=== PATIENT | female | born 1945 | race Caucasian/White ===

== ENCOUNTER → 2016-11-01 | Outpatient (CLI) | payer MEDICARE, OTHER ==
[~2016-11-01] MED LIST: ACET PO; ALPR1TAB6 PO; ASPI-496 PO; ATOR10TA PO; LEVO75TA5 PO; LISI1TAB3 PO; OXYCODONE PO; SERT50TA5 PO; SITA100T PO
[2016-11-01 11:24] LABS: ASPARTATE AMINO TRANSFERASE 16 U/L (15-37); BLOOD UREA NITROGEN 11 mg/dL (7-18)
== END | disposition home or self-care (01) ==
LOC: STAR 10:01
PROVIDERS: ATTEND Surgery
DX: Z01.818 Encounter for other preprocedural examination (principal); C50.911 Malignant neoplasm of unspecified site of right female breast
CPT/HCPCS: 36415; 80053; 93005

== ENCOUNTER 2016-11-09 09:10 | Day surgery (SDC) | payer MEDICARE, OTHER ==
[~2016-11-09] VITALS: Ht 157.5 cm; Wt 88.0 kg
[2016-11-09] MEDS ORDERED: LACTATED RINGERS 1,000 ML IV SCH (09:47)
[2016-11-09 10:16] VITALS: BP 135/72
[2016-11-09] MEDS ORDERED: ISOSULFAN BLUE 10 MG/ML, 5ML IV ONE (14:16)
[2016-11-09] MEDS ORDERED: EPINEPHRINE 1 MG/ML, 1ML ONE (14:17)
[2016-11-09] MEDS ORDERED: BUPIVACAINE/PF 0.5% ONE (14:17)
[2016-11-09] MEDS ORDERED: FENTANYL PF 250 MCG/5ML ONE (14:48)
[2016-11-09] MEDS ORDERED: MIDAZOLAM 1 MG/ML, 2ML ONE (14:49)
[2016-11-09] MEDS ORDERED: PROPOFOL 10 MG/ML, 20ML ONE (15:17)
[2016-11-09] MEDS ORDERED: ONDANSETRON 2MG/ML, 2ML ONE (15:17)
[2016-11-09] MEDS ORDERED: ROCURONIUM 10 MG/ML ONE (15:17)
[2016-11-09] MEDS ORDERED: SUCCINYLCHOLINE 20 MG/ML, 10ML ONE (15:17)
[2016-11-09] MEDS ORDERED: DEXAMETHASONE 4 MG/ML, 1ML ONE (15:17)
[2016-11-09] MEDS ORDERED: KETOROLAC 30 MG/1 ML ONE (15:17)
[2016-11-09] MEDS ORDERED: CEFAZOLIN 1,000 MG ONE (15:17)
[2016-11-09] MEDS ORDERED: ACETAMINOPHEN 325 MG TABLET PO PRN (16:00)
[2016-11-09] MEDS ORDERED: LABETALOL 5MG/ML, 20ML IV PRN (16:00)
[2016-11-09] MEDS ORDERED: METOCLOPRAMIDE 5 MG/ML, 2ML IV PRN (16:00)
[2016-11-09] MEDS ORDERED: MEPERIDINE/PF 25MG/0.5ML IVPush PRN (16:00)
[2016-11-09] MEDS ORDERED: PROMETHAZINE 25 MG/ML, 1ML IV PRN (16:00)
[2016-11-09] MEDS ORDERED: ONDANSETRON 2MG/ML, 2ML IVPush PRN (16:00)
[2016-11-09] MEDS ORDERED: MIDAZOLAM 1 MG/ML, 2ML IV PRN (16:00)
[2016-11-09] MEDS ORDERED: OXYcodone 5 MG/5 ML ORAL.SOL UDC PO PRN (16:00)
[2016-11-09] MEDS ORDERED: hydrALAzine 20 MG/ML, 1ML IV PRN (16:00)
[2016-11-09] MEDS ORDERED: FENTANYL PF 100 MCG/2ML ONE (17:08)
[2016-11-09] MEDS ORDERED: HYDROmorphone 1 MG/ML, 1ML ONE (17:08)
[2016-11-09] MEDS: FENTANYL PF 100 MCG/2ML IV PRN ×2 (17:25→17:30)
[2016-11-09] MEDS ORDERED: ACETAMINOPHEN 650 MG/20.3 ML UDC ONE (17:27)
[2016-11-09] MEDS ORDERED: OXYcodone 5 MG/5 ML ORAL.SOL UDC ONE (17:27)
[2016-11-09] MEDS: HYDROmorphone 1 MG/ML, 1ML IV PRN ×3 (17:35→17:45)
== END 2016-11-09 19:40 | disposition home or self-care (01) ==
LOC: OUT 09:10 → EDSTATUS 14:30 → OUT 19:40
PROVIDERS: ATTEND Surgery
DX: C50.911 Malignant neoplasm of unspecified site of right female breast (principal); I10 Essential (primary) hypertension; E11.9 Type 2 diabetes mellitus without complications; E78.5 Hyperlipidemia, unspecified; E03.9 Hypothyroidism, unspecified; Z87.891 Personal history of nicotine dependence; E66.9 Obesity, unspecified; Z68.35 Body mass index [BMI] 35.0-35.9, adult; Z83.3 Family history of diabetes mellitus; F12.90 Cannabis use, unspecified, uncomplicated; Z90.710 Acquired absence of both cervix and uterus; Z90.49 Acquired absence of other specified parts of digestive tract; E78.00 Pure hypercholesterolemia, unspecified; G47.30 Sleep apnea, unspecified; H35.30 Unspecified macular degeneration
CPT/HCPCS: 19301; 19366; 32553; 38525; 38792; 82962; 88305; 88307; 88333; A9541; C1760; J0171; J0330; J0690; J1100; J1170; J1885; J2250; J2405; J2704; J3010; J3490; J7120

== ENCOUNTER → 2016-12-20 | Outpatient (CLI) | payer MEDICARE, OTHER | END | disposition home or self-care (01) | LOC: PETCFH 10:18 | PROVIDERS: ATTEND Internal Medicine Hematology & Oncology | DX: C50.919 Malignant neoplasm of unspecified site of unspecified female breast (principal); D75.1 Secondary polycythemia | CPT/HCPCS: 78306; A9503 ==

== ENCOUNTER → 2016-12-20 | Outpatient (CLI) | payer MEDICARE, OTHER ==
[~2016-12-20] MED LIST changes: +OMNIPAQUE 350 MG/ML, 75ML BOTTLE ONE
== END | disposition home or self-care (01) ==
LOC: CFH 10:33
PROVIDERS: ATTEND Internal Medicine Hematology & Oncology
DX: J44.9 Chronic obstructive pulmonary disease, unspecified (principal); R91.8 Other nonspecific abnormal finding of lung field; K43.9 Ventral hernia without obstruction or gangrene; D75.1 Secondary polycythemia; C50.919 Malignant neoplasm of unspecified site of unspecified female breast
CPT/HCPCS: 71260; Q9967

== ENCOUNTER 2017-01-30 11:23 | Inpatient (IN) | payer MEDICARE, OTHER ==
[~2017-01-30] VITALS: Ht 157.5 cm; Wt 87.4 kg
[~2017-01-30 11:23] MED LIST changes: -OMNIPAQUE 350 MG/ML, 75ML BOTTLE ONE
[2017-01-30] MEDS ORDERED: SODIUM CHLORIDE FLUSH 10ML SYR IVF ONE (12:00)
[2017-01-30] MEDS ORDERED: SODIUM CHLORIDE 0.9% 1,000ML IVBOLUS ONE ×2 (12:00→15:00)
[2017-01-30 12:12] LABS: HEMATOCRIT 48.4 % (34.6-47.8); HEMOGLOBIN 16.5 g/dL (11.7-16.4); WHITE BLOOD COUNT 7.8 x10^3/uL (3.4-10)
[2017-01-30 12:21] LABS: BLOOD UREA NITROGEN 15 mg/dL (7-18)
[2017-01-30 12:32] LABS: IS PT STATUS REG ER OR PRE ER? YES
[2017-01-30] MEDS ORDERED: GABA300C10 PO (13:10)
[2017-01-30] MEDS ORDERED: AMOX1TAB61 PO (13:13)
[2017-01-30] MEDS ORDERED: GADOBUTROL 7.5 MMOL/7.5 ML PFS ONE (13:24)
[2017-01-30] MEDS ORDERED: CEFTRIAXONE PMX 1GM/50ML 50 ML IV ONE (16:00)
[2017-01-30] MEDS ORDERED: CEFTRIAXONE PMX 1GM/50ML 50 ML ONE (16:05)
[2017-01-30] MEDS ORDERED: ZOLPIDEM 5MG TABLET PO PRN (16:30)
[2017-01-30] MEDS ORDERED: morphine SULFATE 10 MG/ML, 1ML IVPush PRN (16:30)
[2017-01-30] MEDS ORDERED: ALPRazolam 1MG TABLET PO PRN (16:30)
[2017-01-30] MEDS ORDERED: hydrALAzine 20 MG/ML, 1ML IVPush PRN (16:30)
[2017-01-30] MEDS ORDERED: BISACODYL 10 MG SUPP PR PRN (16:30)
[2017-01-30] MEDS ORDERED: HYDROcodone/APAP 5/325 TABLET PO PRN (16:30)
[2017-01-30] MEDS ORDERED: DOCUSATE 100 MG CAPSULE PO PRN (16:30)
[2017-01-30] MEDS ORDERED: ONDANSETRON 2MG/ML, 2ML IVPush PRN (16:30)
[2017-01-30] MEDS ORDERED: ACETAMINOPHEN 325 MG TABLET PO PRN (16:30)
[2017-01-30] MEDS ORDERED: ENOXAPARIN 40 MG/0.4 ML SQ SCH (16:30)
[2017-01-30] MEDS ORDERED: ENOXAPARIN 40 MG/0.4 ML ONE (17:30)
[2017-01-30 18:47] VITALS: BP 125/81
[2017-01-30] MEDS: INSULIN ASPART 100 UNITS/ML, PEN SQ-INSULIN SCH (19:47)
[2017-01-30 20:36] VITALS: BP_SYST 107; BP_SYST 117; BP_DIAS 71; BP_DIAS 73; BP_DIAS 82
[2017-01-30] MEDS ORDERED: GABAPENTIN 300 MG CAPSULE PO SCH (21:00)
[2017-01-30] MEDS: SODIUM CHLORIDE 0.9% 1,000 ML IV SCH (21:00)
[2017-01-30] MEDS: ATORVASTATIN 10 MG TABLET PO SCH (21:00)
[2017-01-30 21:49] VITALS: BP 125/81
[2017-01-31] MEDS: SODIUM CHLORIDE 0.9% 1,000 ML IV SCH ×2 (00:20→07:43)
[2017-01-31 01:45] VITALS: BP 134/83
[2017-01-31 04:55] LABS: HEMOGLOBIN 14.7 g/dL (11.7-16.4); WHITE BLOOD COUNT 4.9 x10^3/uL (3.4-10)
[2017-01-31 05:03] LABS: BLOOD UREA NITROGEN 14 mg/dL (7-18)
[2017-01-31 06:43] VITALS: BP 151/89
[2017-01-31] MEDS: INSULIN ASPART 100 UNITS/ML, PEN SQ-INSULIN SCH ×2 (07:00→11:51)
[2017-01-31] MEDS: ATORVASTATIN 10 MG TABLET PO SCH (07:41)
[2017-01-31] MEDS ORDERED: LEVOTHYROXINE 75 MCG TABLET PO SCH (09:00)
[2017-01-31] MEDS ORDERED: SERTRALINE 50MG TABLET PO SCH (09:00)
[2017-01-31] MEDS ORDERED: ASPIRIN 81 MG TABLET EC PO SCH (09:00)
[2017-01-31] MEDS ORDERED: SITAGLIPTIN 50MG TABLET PO SCH (09:00)
[2017-01-31 11:53] VITALS: BP 144/84
[2017-01-31 12:39] VITALS: BP 129/82
[2017-01-31] MEDS ORDERED: GABAPENTIN 100 MG CAPSULE PO SCH (16:00)
== END 2017-01-31 15:20 | disposition home or self-care (01) | DRG 314 ==
LOC: ED 13:59 → EDIP 15:58 → 3NW 18:40 → DCLOUNGE 01-31 15:08
PROVIDERS: ADMIT Internal Medicine; ATTEND Internal Medicine
DX: I95.9 Hypotension, unspecified (principal); E43 Unspecified severe protein-calorie malnutrition; E10.65 Type 1 diabetes mellitus with hyperglycemia; C50.911 Malignant neoplasm of unspecified site of right female breast; J98.11 Atelectasis; N30.90 Cystitis, unspecified without hematuria; I10 Essential (primary) hypertension; E03.9 Hypothyroidism, unspecified; R47.81 Slurred speech; E78.5 Hyperlipidemia, unspecified; F41.1 Generalized anxiety disorder; G47.33 Obstructive sleep apnea (adult) (pediatric); H35.30 Unspecified macular degeneration; Z80.0 Family history of malignant neoplasm of digestive organs; Z83.3 Family history of diabetes mellitus; Z85.3 Personal history of malignant neoplasm of breast; Z87.891 Personal history of nicotine dependence; Z92.3 Personal history of irradiation; Z90.49 Acquired absence of other specified parts of digestive tract; T46.4X5A Adverse effect of angiotensin-converting-enzyme inhibitors, initial encounter; T50.2X5A Adverse effect of carbonic-anhydrase inhibitors, benzothiadiazides and other diuretics, initial encounter
CPT/HCPCS: 36415; 70450; 70553; 71010; 77412; 80048; 81001; 82040; 82962; 83605; 83735; 84443; 84484; 85025; 87086; 93005; 96361; 96372; 96374; A9585; J0696; J1650; J1815; J7030

== ENCOUNTER → 2017-03-01 | Outpatient (CLI) | payer MEDICARE, OTHER ==
[~2017-03-01] MED LIST changes: +AMOX1TAB61 PO; +GABA300C10 PO
== END | disposition home or self-care (01) ==
LOC: ROC 09:57
PROVIDERS: ATTEND Radiology Radiation Oncology
DX: Z08 Encounter for follow-up examination after completed treatment for malignant neoplasm (principal); C50.911 Malignant neoplasm of unspecified site of right female breast; D75.1 Secondary polycythemia; Z79.82 Long term (current) use of aspirin
CPT/HCPCS: 99212; G0463

== ENCOUNTER → 2017-10-01 | Outpatient (CLI) | payer MEDICARE, OTHER | LOC: ROC 07:46 | PROVIDERS: ATTEND Radiology Radiation Oncology | DX: Z08 Encounter for follow-up examination after completed treatment for malignant neoplasm (principal); C50.511 Malignant neoplasm of lower-outer quadrant of right female breast; D75.1 Secondary polycythemia; J44.9 Chronic obstructive pulmonary disease, unspecified; Z17.0 Estrogen receptor positive status [ER+]; Z79.82 Long term (current) use of aspirin; Z79.811 Long term (current) use of aromatase inhibitors | CPT/HCPCS: G0463 ==

== ENCOUNTER → 2017-12-18 | Outpatient (CLI) | payer MEDICARE, OTHER | END | disposition home or self-care (01) | LOC: CFH 10:28 | PROVIDERS: ATTEND Internal Medicine Hematology & Oncology | DX: M81.0 Age-related osteoporosis without current pathological fracture (principal) | CPT/HCPCS: 77080 ==

== ENCOUNTER → 2018-09-05 | Outpatient (CLI) | payer MEDICARE, OTHER ==
[~2018-09-05] MED LIST changes: +SERT50TA28 PO; -SERT50TA5 PO
== END | disposition home or self-care (01) ==
LOC: ROC 07:18
PROVIDERS: ATTEND Radiology Radiation Oncology
DX: C50.511 Malignant neoplasm of lower-outer quadrant of right female breast (principal)
CPT/HCPCS: G0463

== ENCOUNTER 2019-08-28 11:02 | Outpatient (CLI) | payer MEDICARE, OTHER ==
[~2019-08-28 11:02] MED LIST changes: +ANAS1TAB PO; +ASPI81TA45 PO; +ATOR-2 PO; +CLOP75TA PO; +FLUT1BLS3 IH; +HYDR25CA PO; +INSU100I13 SQ-INSULIN; +LISI-167 PO; +LISI-170 PO; +LISI1TAB23 PO; -LISI1TAB3 PO; +METF500T17 PO; +OXYC-302 PO; +OXYC-307 PO; +PALB100C PO; +TRIA10.8 NAS
[2019-08-28 12:51] LABS: ALBUMIN 2.2 g/dL (3.4-5.0); ANION GAP 5 mmol/L (5-15); CALCIUM 9.2 mg/dL (8.5-10.1); CHLORIDE 102 mmol/L (98-107)
[2019-08-28 12:56] LABS: ALANINE AMINOTRANSFERASE 15 U/L (12-78); ALKALINE PHOSPHATASE 114 U/L (45-117); BILIRUBIN,TOTAL 0.2 mg/dL (0.2-1.0); CREATININE 0.68 mg/dL (0.55-1.02)
[2019-08-28 13:00] LABS: BASOPHILS # (AUTO) 0.02 x10^3/uL (0-0.1); BASOPHILS % (AUTO) 1 % (0-1); EOSINOPHILS # (AUTO) 0.08 x10^3/uL (0-0.4); EOSINOPHILS % (AUTO) 2 % (1-7); LYMPHOCYTES % (AUTO) 17 % (22-44); MD NO; MEAN CORPUSCULAR HEMOGLOBIN 31.6 pg (27.0-34.8); MEAN CORPUSCULAR HGB CONC 33.3 g/dL (32.4-35.8); MEAN CORPUSCULAR VOLUME 94.9 fL (80-100); MEAN PLATELET VOLUME 6.5 fL (7.4-10.4); MONOCYTES # (AUTO) 0.45 x10^3/uL (0.2-0.8); MONOCYTES % (AUTO) 10 % (2-9); NEUTROPHILS # (AUTO) 3.29 x10^3/uL (1.8-6.8); NEUTROPHILS % (AUTO) 71 % (42-75); PLATELET COUNT 243 x10^3/uL (130-400); RED BLOOD COUNT 4.04 x10^6/uL (3.82-5.3)
== END 2019-08-28 23:59 | disposition home or self-care (01) ==
LOC: CFH 11:02
PROVIDERS: ATTEND Internal Medicine
DX: Z51.11 Encounter for antineoplastic chemotherapy (principal); C50.511 Malignant neoplasm of lower-outer quadrant of right female breast; C79.51 Secondary malignant neoplasm of bone; C78.00 Secondary malignant neoplasm of unspecified lung; E55.9 Vitamin D deficiency, unspecified; D75.1 Secondary polycythemia; R53.0 Neoplastic (malignant) related fatigue; M81.0 Age-related osteoporosis without current pathological fracture; Z79.811 Long term (current) use of aromatase inhibitors; Z79.899 Other long term (current) drug therapy
CPT/HCPCS: 36415; 80053; 85025

== ENCOUNTER 2019-09-11 06:12 | Inpatient (IN) | payer MEDICARE, OTHER ==
[~2019-09-11] VITALS: Ht 157.5 cm; Wt 87.0 kg
[2019-09-11] MEDS ORDERED: ALBUTEROL/IPRATROPIUM 2.5MG/0.5MG, 3 ML ONE ×2 (06:23→07:54)
[2019-09-11] MEDS ORDERED: OXYcodone/APAP 5/325MG TABLET ONE (06:23)
[2019-09-11] MEDS ORDERED: OXYcodone 5 MG/5 ML ORAL.SOL UDC PO ONE (06:30)
[2019-09-11] MEDS ORDERED: SODIUM CHLORIDE FLUSH 10ML SYR IVF ONE (06:30)
[2019-09-11] MEDS ORDERED: SODIUM CHLORIDE 0.9%, 500ML IVBOLUS ONE (06:30)
[2019-09-11] MEDS ORDERED: ALBUTEROL/IPRATROPIUM 2.5MG/0.5MG, 3 ML NEB ONE (06:30)
--- NOTE | 2019-09-11 06:30 | NUR ---
EKG DONE ON ARRIVAL.
--- NOTE | 2019-09-11 06:34 | NUR ---
TASK RN: RN PULLED DUONEB AND 2 5MG OXYCODONE FROM [facility] FOR PRIMARY RN.
--- NOTE | 2019-09-11 06:41 | NUR ---
PT BIBA FROM HOME FOR SOB. PT WEARS HOME O2 AT 3L CONTINUOUS. PT INCREASED TO 5L S RELIEF (88% SPO2). PT STATES FEVER X YESTERDAY. DENIES ANY TRAVEL. PT WAS GIVEN DUONEB AT HOME S RELIEF. PT STATES THIS SOB IS SIMILIAR TO A MONTH AGO WHEN SHE WAS ADMITTED FOR B/O PLEURAL EFFUSIONS, PT WAS ADMITTED FOR ~12 DAYS. PT ARRIVED ON NRB, SPO2 95%. PT TALKING IN FULL SENTANCES, STATES UNABLE TO TAKE DEEP BREATH. DIMINISHED BS THROUGHOUT. EKD OBTAINED. PT ST ONMONITOR 120-130S. PT HAVING OCCASIONAL SVT, HIGHEST NOTED 210, PT DENIES FEELING ANY FLUTTERING IN CHEST. NO HX OF IRR HR. PIV ESTB. LABS DRAWN C B/C X1. PT GIVEN DUONUB, STATES MILD IMPROVEMENT C TAKING DEEP BREATH. REMAINS 97% ON 15L, DECREASED TO 10L, PT TOLERATING WELL.
[2019-09-11 06:57] LABS: MEAN CORPUSCULAR HEMOGLOBIN 31.9 pg (27.0-34.8); MEAN CORPUSCULAR HGB CONC 33.1 g/dL (32.4-35.8); MEAN CORPUSCULAR VOLUME 96.6 fL (80-100); MEAN PLATELET VOLUME 6.7 fL (7.4-10.4); PLATELET COUNT 285 x10^3/uL (130-400); RED BLOOD COUNT 3.81 x10^6/uL (3.82-5.3); RED CELL DISTRIBUTION WIDTH 17.4 % (9.6-15.2)
[2019-09-11] MEDS ORDERED: OXYcodone/APAP 5/325MG TABLET PO ONE (07:00)
[2019-09-11] MEDS ORDERED: METOPROLOL 1 MG/ML, 5ML IVPush ONE (07:00)
--- NOTE | 2019-09-11 07:00 | NUR ---
REPORT FROM TATIANA RODGERS, ASSUME CARE OF PT AT THIS TIME. PT RESTING COMFORTABLY, STATES LESS SOB AT THIS TIME. VSS, NRB IN PLACE AT 15 LITERS W/96% SAT. CALL LIGHT WITHIN REACH. PT REMAINS IN ISOLATION R/O COVID-19
[2019-09-11 07:04] LABS: CHLORIDE 104 mmol/L (98-107)
--- NOTE | 2019-09-11 07:05 | NUR ---
ELIESER [phone]
[2019-09-11 07:14] LABS: ALANINE AMINOTRANSFERASE 11 U/L (12-78); ALBUMIN 2.2 g/dL (3.4-5.0); ALKALINE PHOSPHATASE 112 U/L (45-117); ANION GAP 8 mmol/L (5-15); BILIRUBIN,TOTAL 0.6 mg/dL (0.2-1.0); CREATININE 0.73 mg/dL (0.55-1.02); TOTAL PROTEIN 6.1 g/dL (6.4-8.2); TROPONIN I 0.019 ng/mL (0.000-0.045)
[2019-09-11] MEDS ORDERED: CEFTRIAXONE PMX 1GM/50ML 50 ML IV ONE (07:30)
[2019-09-11] MEDS ORDERED: MAGNESIUM SULFATE PMX 2GM/50ML 50 ML IV ONE ×2 (07:30→11:30)
[2019-09-11] MEDS ORDERED: AZITHROMYCIN 500 MG in SODIUM CHLORIDE 0.9% 250 ML IV ONE (07:30)
[2019-09-11 07:38] LABS: MD YES
[2019-09-11 07:41] LABS: BAND#(MANUAL) 0.25 x10^3/uL; BANDS%(MANUAL) 5 % (0-7); LYMPHS% (MANUAL) 7 % (22-44); SEG#(MANUAL) 4.25 x10^3/uL (1.8-6.8); SEGS% (MANUAL) 85 % (42-75)
[2019-09-11 07:42] LABS: LYMPH#(MANUAL) 0.35 x10^3/uL (1-3.4); MONOS#(MANUAL) 0.15 x10^3/uL (0.3-2.7); MONOS% (MANUAL) 3 % (2-9)
[2019-09-11] MEDS ORDERED: MAGNESIUM SULFATE PMX 2GM/50ML 50 ML ONE (07:42)
[2019-09-11 07:43] LABS: <PLATELET ESTIMATE> ADEQUATE; <PLT MORPHOLOGY> NORMAL PLT MORPH; ANISOCYTOSIS 1+
[2019-09-11] MEDS ORDERED: CEFTRIAXONE PMX 1GM/50ML 50 ML ONE (07:43)
--- NOTE | 2019-09-11 07:55 | NUR ---
OXYGEN TITRATED TO 6 LITERS VIA NC. PT STATES HOME OXYGEN OF 2-3 VIA NC NORMALLY. PT TO CT.
--- NOTE | 2019-09-11 08:25 | NUR ---
ANTIBIOTICS INFUSING. IV SITES RETAPED. PT ASSISTED IN REPOSITIONING. PULSE OX RANGING 92-95% ON 6LITERS VIA NC. NAD. VS UPDATED IN COMPUTER.
[2019-09-11] MEDS ORDERED: OMNIPAQUE 350 MG/ML, 75ML BOTTLE ONE (08:39)
--- NOTE | 2019-09-11 08:54 | NUR ---
CTA RESULTS BACK, PT FOR RECHECK.
--- NOTE | 2019-09-11 10:47 | NUR ---
SPOKE WITH ABOUT CONCERNS. ALL QUESTIONS ANSWERED. CONTINUE TO AWAIT ADMIT BED.
--- NOTE | 2019-09-11 10:54 | NUR ---
HOSPITALIST IS AT THE BEDSIDE FOR CONSULT
[2019-09-11] MEDS: ENOXAPARIN 40 MG/0.4 ML SQ SCH (12:26)
[2019-09-11 12:46] VITALS: BP 108/49
[2019-09-11] MEDS: DOXYCYCLINE 100 MG in DEXTROSE 5% 250 ML IV SCH (12:58)
[2019-09-11 13:31] VITALS: BP 108/49
[2019-09-11] MEDS: INSULIN LISPRO 100 UNITS/ML, PEN SQ-INSULIN SCH ×2 (16:26→19:39)
[2019-09-11] MEDS: OXYcodone IR 5MG TABLET PO PRN (17:16)
[2019-09-11] MEDS ORDERED: SODIUM CHLORIDE NASAL SPRAY 45ML BOTTLE NAS PRN (18:00)
[2019-09-11 19:38] VITALS: BP 147/85
[2019-09-11] MEDS: HYDROXYCHLOROQUINE 200 MG TABLET PO SCH (20:01)
[2019-09-11] MEDS: ALPRazolam 1MG TAB PO PRN (20:02)
[2019-09-12 00:06] VITALS: BP 148/77
[2019-09-12] MEDS: DOXYCYCLINE 100 MG in DEXTROSE 5% 250 ML IV SCH ×2 (01:20→12:43)
[2019-09-12] MEDS: OXYcodone IR 5MG TABLET PO PRN ×4 (01:20→22:25)
[2019-09-12] MEDS ORDERED: DILTIAZEM 5 MG/ML, 5ML IVPush ONE ×2 (05:30→06:30)
[2019-09-12 05:48] VITALS: BP 146/86
[2019-09-12] MEDS: ASPIRIN 81 MG TABLET EC PO SCH (05:51)
[2019-09-12] MEDS: ALPRazolam 1MG TAB PO PRN ×2 (05:51→20:09)
[2019-09-12] MEDS: LEVOTHYROXINE 75 MCG TABLET PO SCH (05:52)
[2019-09-12 06:25] VITALS: BP 151/94
[2019-09-12 07:05] VITALS: BP 127/89
[2019-09-12] MEDS: INSULIN LISPRO 100 UNITS/ML, PEN SQ-INSULIN SCH ×4 (07:47→19:40)
[2019-09-12] MEDS ORDERED: METOPROLOL TARTRATE 25 MG TAB PO SCH (08:00)
[2019-09-12] MEDS: CEFTRIAXONE PMX 1GM/50ML 50 ML IV SCH (09:09)
[2019-09-12] MEDS: ALBUTEROL-IPRATROPIUM MDI INH INH SCH ×2 (09:10→20:10)
[2019-09-12] MEDS: FLUTICASONE/VILANTEROL 100-25MCG/INH INH SCH (09:10)
[2019-09-12] MEDS: HYDROXYCHLOROQUINE 200 MG TABLET PO SCH ×2 (09:15→20:09)
[2019-09-12] MEDS: ZINC SULFATE 220 MG CAPSULE PO SCH (09:15)
[2019-09-12] MEDS: LISINOPRIL 10 MG TABLET PO SCH (09:15)
[2019-09-12] MEDS: CHOLECALCIFEROL 5,000u TAB PO SCH (09:15)
[2019-09-12] MEDS: ASCORBIC ACID 500 MG TABLET PO SCH (09:15)
[2019-09-12] MEDS: METOPROLOL TARTRATE 25 MG TAB PO SCH ×2 (09:15→16:57)
[2019-09-12] MEDS: ENOXAPARIN 40 MG/0.4 ML SQ SCH (11:52)
[2019-09-12 12:50] VITALS: BP 125/98
[2019-09-12 19:41] VITALS: BP 130/62
[2019-09-12] MEDS: ACETAMINOPHEN 325 MG TABLET PO PRN (20:08)
[2019-09-13 01:04] VITALS: BP 143/53
[2019-09-13] MEDS: DOXYCYCLINE 100 MG in DEXTROSE 5% 250 ML IV SCH ×2 (01:06→12:16)
[2019-09-13] MEDS: ASPIRIN 81 MG TABLET EC PO SCH (05:11)
[2019-09-13] MEDS: LEVOTHYROXINE 75 MCG TABLET PO SCH (05:11)
[2019-09-13] MEDS: OXYcodone IR 5MG TABLET PO PRN ×3 (05:12→16:45)
[2019-09-13] MEDS: METOPROLOL TARTRATE 25 MG TAB PO SCH ×2 (05:12→16:45)
[2019-09-13 06:14] LABS: MEAN CORPUSCULAR HEMOGLOBIN 31.9 pg (27.0-34.8); MEAN CORPUSCULAR HGB CONC 32.7 g/dL (32.4-35.8); MEAN CORPUSCULAR VOLUME 97.5 fL (80-100); MEAN PLATELET VOLUME 6.7 fL (7.4-10.4); PLATELET COUNT 313 x10^3/uL (130-400); RED BLOOD COUNT 3.76 x10^6/uL (3.82-5.3); RED CELL DISTRIBUTION WIDTH 17.6 % (9.6-15.2)
[2019-09-13 06:21] LABS: CALCIUM 10.1 mg/dL (8.5-10.1); CHLORIDE 106 mmol/L (98-107)
[2019-09-13 06:25] LABS: ANION GAP 6 mmol/L (5-15)
[2019-09-13 06:26] LABS: ALANINE AMINOTRANSFERASE 11 U/L (12-78); ALKALINE PHOSPHATASE 125 U/L (45-117); BILIRUBIN,TOTAL 0.3 mg/dL (0.2-1.0); TOTAL PROTEIN 6.1 g/dL (6.4-8.2)
[2019-09-13 06:46] LABS: BASOPHILS # (AUTO) 0.02 x10^3/uL (0-0.1); BASOPHILS % (AUTO) 1 % (0-1); EOSINOPHILS # (AUTO) 0.15 x10^3/uL (0-0.4); EOSINOPHILS % (AUTO) 4 % (1-7); LYMPHOCYTES # (AUTO) 1.11 x10^3/uL (1-3.4); LYMPHOCYTES % (AUTO) 28 % (22-44); MD SCAN; MONOCYTES # (AUTO) 0.32 x10^3/uL (0.2-0.8); MONOCYTES % (AUTO) 8 % (2-9); NEUTROPHILS # (AUTO) 2.36 x10^3/uL (1.8-6.8); NEUTROPHILS % (AUTO) 60 % (42-75)
[2019-09-13] MEDS: INSULIN LISPRO 100 UNITS/ML, PEN SQ-INSULIN SCH ×4 (07:18→20:02)
[2019-09-13 08:17] VITALS: BP 124/56
[2019-09-13] MEDS: CEFTRIAXONE PMX 1GM/50ML 50 ML IV SCH (08:22)
[2019-09-13] MEDS: CHOLECALCIFEROL 5,000u TAB PO SCH (08:24)
[2019-09-13] MEDS: LISINOPRIL 10 MG TABLET PO SCH (08:24)
[2019-09-13] MEDS: HYDROXYCHLOROQUINE 200 MG TABLET PO SCH (08:24)
[2019-09-13] MEDS: ZINC SULFATE 220 MG CAPSULE PO SCH (08:24)
[2019-09-13] MEDS: ASCORBIC ACID 500 MG TABLET PO SCH (08:24)
[2019-09-13] MEDS: ALBUTEROL-IPRATROPIUM MDI INH INH SCH ×2 (08:26→20:01)
[2019-09-13] MEDS: FLUTICASONE/VILANTEROL 100-25MCG/INH INH SCH (08:26)
[2019-09-13] MEDS ORDERED: LIDOCAINE 1%, 10ML ONE (11:15)
[2019-09-13 13:53] VITALS: BP 121/58
[2019-09-13] MEDS: ENOXAPARIN 40 MG/0.4 ML SQ SCH (14:19)
[2019-09-13 18:06] VITALS: BP 139/67
[2019-09-13] MEDS: ALPRazolam 1MG TAB PO PRN (20:01)
[2019-09-13] MEDS: ACETAMINOPHEN 325 MG TABLET PO PRN (20:01)
[2019-09-14] VITALS: BP 107/56
[2019-09-14] MEDS: OXYcodone IR 5MG TABLET PO PRN ×5 (00:02→19:24)
[2019-09-14] MEDS: DOXYCYCLINE 100 MG in DEXTROSE 5% 250 ML IV SCH ×2 (00:02→12:20)
[2019-09-14] MEDS: ASPIRIN 81 MG TABLET EC PO SCH (05:12)
[2019-09-14] MEDS: ACETAMINOPHEN 325 MG TABLET PO PRN ×3 (05:12→19:24)
[2019-09-14] MEDS: LEVOTHYROXINE 75 MCG TABLET PO SCH (05:13)
[2019-09-14] MEDS: METOPROLOL TARTRATE 25 MG TAB PO SCH ×2 (05:13→17:34)
[2019-09-14 05:51] LABS: BASOPHILS # (AUTO) 0.01 x10^3/uL (0-0.1); BASOPHILS % (AUTO) 0 % (0-1); EOSINOPHILS # (AUTO) 0.08 x10^3/uL (0-0.4); EOSINOPHILS % (AUTO) 3 % (1-7); LYMPHOCYTES # (AUTO) 0.74 x10^3/uL (1-3.4); LYMPHOCYTES % (AUTO) 25 % (22-44); MD NO; MEAN CORPUSCULAR HEMOGLOBIN 32.6 pg (27.0-34.8); MEAN CORPUSCULAR HGB CONC 33.5 g/dL (32.4-35.8); MEAN CORPUSCULAR VOLUME 97.1 fL (80-100); MEAN PLATELET VOLUME 6.6 fL (7.4-10.4); MONOCYTES # (AUTO) 0.29 x10^3/uL (0.2-0.8); MONOCYTES % (AUTO) 10 % (2-9); NEUTROPHILS # (AUTO) 1.85 x10^3/uL (1.8-6.8); NEUTROPHILS % (AUTO) 62 % (42-75); PLATELET COUNT 258 x10^3/uL (130-400); RED BLOOD COUNT 3.59 x10^6/uL (3.82-5.3)
[2019-09-14 06:05] LABS: CHLORIDE 106 mmol/L (98-107)
[2019-09-14 06:12] LABS: ANION GAP 4 mmol/L (5-15); CALCIUM 9.4 mg/dL (8.5-10.1); CREATININE 0.57 mg/dL (0.55-1.02)
[2019-09-14] MEDS: INSULIN LISPRO 100 UNITS/ML, PEN SQ-INSULIN SCH ×4 (07:00→18:58)
[2019-09-14 08:25] VITALS: BP 160/66
[2019-09-14] MEDS: CEFTRIAXONE PMX 1GM/50ML 50 ML IV SCH (08:30)
[2019-09-14] MEDS: LISINOPRIL 10 MG TABLET PO SCH (08:30)
[2019-09-14] MEDS: ASCORBIC ACID 500 MG TABLET PO SCH (08:31)
[2019-09-14] MEDS: CHOLECALCIFEROL 5,000u TAB PO SCH (08:31)
[2019-09-14] MEDS: ZINC SULFATE 220 MG CAPSULE PO SCH (08:31)
[2019-09-14] MEDS: FLUTICASONE/VILANTEROL 100-25MCG/INH INH SCH (08:39)
[2019-09-14] MEDS: ALBUTEROL-IPRATROPIUM MDI INH INH SCH ×2 (08:40→19:25)
[2019-09-14] MEDS: ENOXAPARIN 40 MG/0.4 ML SQ SCH (12:20)
[2019-09-14 12:26] VITALS: BP 124/83
[2019-09-14] MEDS: POLYETHYLENE GLYCOL 17 GM PACKET PO PRN (13:54)
[2019-09-14] MEDS: ALPRazolam 1MG TAB PO PRN ×2 (14:01→20:26)
[2019-09-14 19:21] VITALS: BP 129/50
[2019-09-14] MEDS: DOCUSATE 100 MG CAPSULE PO PRN (19:24)
[2019-09-15 00:35] VITALS: BP 147/72
[2019-09-15] MEDS: OXYcodone IR 5MG TABLET PO PRN ×4 (00:38→15:08)
[2019-09-15] MEDS: DOXYCYCLINE 100 MG in DEXTROSE 5% 250 ML IV SCH ×2 (00:38→12:29)
[2019-09-15] MEDS: ASPIRIN 81 MG TABLET EC PO SCH (05:01)
[2019-09-15] MEDS: ACETAMINOPHEN 325 MG TABLET PO PRN ×2 (05:01→12:29)
[2019-09-15] MEDS: METOPROLOL TARTRATE 25 MG TAB PO SCH (05:02)
[2019-09-15] MEDS: LEVOTHYROXINE 75 MCG TABLET PO SCH (05:02)
[2019-09-15 05:49] LABS: BASOPHILS # (AUTO) 0.03 x10^3/uL (0-0.1); BASOPHILS % (AUTO) 1 % (0-1); EOSINOPHILS # (AUTO) 0.05 x10^3/uL (0-0.4); EOSINOPHILS % (AUTO) 2 % (1-7); LYMPHOCYTES # (AUTO) 0.62 x10^3/uL (1-3.4); LYMPHOCYTES % (AUTO) 19 % (22-44); MD NO; MEAN CORPUSCULAR HEMOGLOBIN 31.9 pg (27.0-34.8); MEAN CORPUSCULAR HGB CONC 33.1 g/dL (32.4-35.8); MEAN CORPUSCULAR VOLUME 96.4 fL (80-100); MEAN PLATELET VOLUME 6.7 fL (7.4-10.4); MONOCYTES # (AUTO) 0.36 x10^3/uL (0.2-0.8); MONOCYTES % (AUTO) 11 % (2-9); NEUTROPHILS # (AUTO) 2.13 x10^3/uL (1.8-6.8); NEUTROPHILS % (AUTO) 67 % (42-75); PLATELET COUNT 236 x10^3/uL (130-400); RED BLOOD COUNT 3.49 x10^6/uL (3.82-5.3); RED CELL DISTRIBUTION WIDTH 17.1 % (9.6-15.2)
[2019-09-15] MEDS: INSULIN LISPRO 100 UNITS/ML, PEN SQ-INSULIN SCH ×3 (07:00→16:00)
[2019-09-15 07:05] VITALS: BP 150/82
[2019-09-15] MEDS: LISINOPRIL 10 MG TABLET PO SCH (08:05)
[2019-09-15] MEDS: ASCORBIC ACID 500 MG TABLET PO SCH (08:05)
[2019-09-15] MEDS: ZINC SULFATE 220 MG CAPSULE PO SCH (08:05)
[2019-09-15] MEDS: CHOLECALCIFEROL 5,000u TAB PO SCH (08:06)
[2019-09-15] MEDS: ALBUTEROL-IPRATROPIUM MDI INH INH SCH (08:06)
[2019-09-15] MEDS: CEFTRIAXONE PMX 1GM/50ML 50 ML IV SCH (08:07)
[2019-09-15] MEDS: FLUTICASONE/VILANTEROL 100-25MCG/INH INH SCH (08:07)
[2019-09-15] MEDS: DOCUSATE 100 MG CAPSULE PO PRN (09:30)
[2019-09-15] MEDS: ALPRazolam 1MG TAB PO PRN (09:31)
[2019-09-15] MEDS: POLYETHYLENE GLYCOL 17 GM PACKET PO PRN (09:34)
[2019-09-15] MEDS: ENOXAPARIN 40 MG/0.4 ML SQ SCH (12:29)
[2019-09-15 14:54] VITALS: BP 148/65
[2019-09-15] MEDS ORDERED: DOXY100C2 PO (15:11)
[2019-09-15] MEDS ORDERED: METO25TA35 PO (15:11)
[2019-09-15] MEDS ORDERED: RIVA20TA PO (15:11)
[2019-09-15] MEDS ORDERED: CEFD300C37 PO (15:11)
== END 2019-09-15 16:40 | disposition home or self-care (01) | DRG 193 ==
LOC: ED 06:26 → EDIP 09:58 → 3WST 11:58 → 4NW 17:25
PROVIDERS: ADMIT Internal Medicine; ATTEND Internal Medicine
PROC: 0W9B30Z Drainage of Left Pleural Cavity with Drainage Device, Percutaneous Approach (ICD-10-PCS; principal; 2019-09-13)
DX: J18.9 Pneumonia, unspecified organism (principal); J96.21 Acute and chronic respiratory failure with hypoxia; C79.9 Secondary malignant neoplasm of unspecified site; J91.0 Malignant pleural effusion; Z20.828 Contact with and (suspected) exposure to other viral communicable diseases; D63.8 Anemia in other chronic diseases classified elsewhere; E03.9 Hypothyroidism, unspecified; E11.9 Type 2 diabetes mellitus without complications; E78.5 Hyperlipidemia, unspecified; E83.42 Hypomagnesemia; G47.33 Obstructive sleep apnea (adult) (pediatric); G89.29 Other chronic pain; I11.0 Hypertensive heart disease with heart failure; I48.91 Unspecified atrial fibrillation; I50.9 Heart failure, unspecified; K64.9 Unspecified hemorrhoids; Z86.73 Personal history of transient ischemic attack (TIA), and cerebral infarction without residual deficits; Z87.891 Personal history of nicotine dependence; K59.00 Constipation, unspecified; C50.919 Malignant neoplasm of unspecified site of unspecified female breast; R53.81 Other malaise
CPT/HCPCS: 32555; 36415; 71045; 71275; 80048; 80053; 82728; 82945; 82962; 83605; 83615; 83735; 84100; 84145; 84157; 84439; 84443; 84484; 85025; 87015; 87040; 87070; 87075; 87102; 87116; 87205; 87206; 88112; 88305; 89051; 93005; 96365; 96366; 96368; 96375; 99291; G0378; J0456; J0696; J1650; J7060; Q9967; J3475; J7040; J7050; U0001

== ENCOUNTER → 2020-01-08 | Outpatient (CLI) | payer MEDICARE, OTHER ==
[~2020-01-08] MED LIST changes: +CEFD300C37 PO; +DOXY100C2 PO; +METO25TA35 PO; +OMNIPAQUE 350 MG/ML, 100ML BOTTLE ONE; +RIVA20TA PO
== END | disposition home or self-care (01) ==
LOC: RAD 11:04
PROVIDERS: ATTEND Internal Medicine
DX: C50.511 Malignant neoplasm of lower-outer quadrant of right female breast (principal); J92.9 Pleural plaque without asbestos; R59.0 Localized enlarged lymph nodes; J90 Pleural effusion, not elsewhere classified; J43.9 Emphysema, unspecified; J98.4 Other disorders of lung; K76.0 Fatty (change of) liver, not elsewhere classified; D17.71 Benign lipomatous neoplasm of kidney; N28.1 Cyst of kidney, acquired; K57.30 Diverticulosis of large intestine without perforation or abscess without bleeding; I70.0 Atherosclerosis of aorta; Z90.710 Acquired absence of both cervix and uterus
CPT/HCPCS: 71260; 74177; 78306; A9503; Q9967

== ENCOUNTER 2020-04-10 17:15 | Emergency (ER) | payer MEDICARE, OTHER ==
[~2020-04-10] VITALS: Ht 157.5 cm; Wt 82.0 kg
[~2020-04-10 17:15] MED LIST changes: -OMNIPAQUE 350 MG/ML, 100ML BOTTLE ONE
--- NOTE | 2020-04-10 17:25 | NUR ---
[employer] B[employer]IMMER: NOTIFIED OF PTS SYMPTOMS AND ONSET.
[2020-04-10 17:57] LABS: BASOPHILS % (AUTO) 1 % (0-1); EOSINOPHILS % (AUTO) 2 % (1-7); LYMPHOCYTES % (AUTO) 32 % (22-44); MEAN CORPUSCULAR HEMOGLOBIN 33.9 pg (27.0-34.8); MEAN CORPUSCULAR HGB CONC 34.1 g/dL (32.4-35.8); MEAN PLATELET VOLUME 6.6 fL (7.4-10.4); MONOCYTES % (AUTO) 8 % (2-9); NEUTROPHILS % (AUTO) 57 % (42-75); PLATELET COUNT 195 x10^3/uL (130-400); RED BLOOD COUNT 3.95 x10^6/uL (3.82-5.3); RED CELL DISTRIBUTION WIDTH 12.8 % (9.6-15.2)
[2020-04-10] MEDS ORDERED: SODIUM CHLORIDE FLUSH 10ML SYR IVF ONE (18:00)
[2020-04-10 18:04] LABS: MD NO
[2020-04-10 18:11] LABS: ALANINE AMINOTRANSFERASE 10 U/L (12-78); ALBUMIN 2.6 g/dL (3.4-5.0); ANION GAP 0 mmol/L (5-15); CALCIUM 9.1 mg/dL (8.5-10.1); CHLORIDE 103 mmol/L (98-107)
[2020-04-10 18:14] LABS: ALKALINE PHOSPHATASE 107 U/L (45-117); BILIRUBIN,TOTAL 0.3 mg/dL (0.2-1.0); CREATININE 1.08 mg/dL (0.55-1.02); TOTAL PROTEIN 6.6 g/dL (6.4-8.2)
[2020-04-10 18:16] LABS: INTERNATIONAL NORMALIZED RATIO 0.89 (0.93-1.1); PROTHROMBIN TIME 9.4 Seconds (9.6-11.5)
[2020-04-10 18:18] LABS: SALICYLATE LEVEL < 1.7 mg/dL (2.8-20.0)
--- NOTE | 2020-04-10 18:50 | NUR ---
REPORT FROM [facility] ASSUMING CARE OF PT AT THIS TIME
--- NOTE | 2020-04-10 19:21 | NUR ---
ERP AT BEDSIDE TO RECHECK PT AND DISCUSS POC
--- NOTE | 2020-04-10 19:37 | NUR ---
PT UP TO RESTROOM FOR URINE SAMPLE AT THIS TIME
[2020-04-10 19:55] VITALS: BP 125/84
--- NOTE | 2020-04-10 19:56 | NUR ---
Patient/Caregiver given discharge instructions and they have confirmed that they understand the instructions. Patient ambulatory with steady gait.
== END 2020-04-10 19:57 | disposition home or self-care (01) ==
LOC: ED 18:23
DX: R47.89 Other speech disturbances (principal); T48.1X5A Adverse effect of skeletal muscle relaxants [neuromuscular blocking agents], initial encounter; E11.9 Type 2 diabetes mellitus without complications; E78.5 Hyperlipidemia, unspecified; I11.0 Hypertensive heart disease with heart failure; I50.9 Heart failure, unspecified; E03.9 Hypothyroidism, unspecified; Z87.891 Personal history of nicotine dependence; Z86.73 Personal history of transient ischemic attack (TIA), and cerebral infarction without residual deficits; Z85.3 Personal history of malignant neoplasm of breast; Y92.89 Other specified places as the place of occurrence of the external cause
CPT/HCPCS: 36415; 70450; 80053; 80307; 85025; 85610; 85730; 99284

== ENCOUNTER → 2020-05-06 | Outpatient (CLI) | payer MEDICARE, OTHER ==
[~2020-05-06] MED LIST changes: +OMNIPAQUE 350 MG/ML, 100ML BOTTLE ONE
== END | disposition home or self-care (01) ==
LOC: RAD 10:23
PROVIDERS: ATTEND Internal Medicine
DX: C50.511 Malignant neoplasm of lower-outer quadrant of right female breast (principal); K76.0 Fatty (change of) liver, not elsewhere classified; J90 Pleural effusion, not elsewhere classified; M43.8X4 Other specified deforming dorsopathies, thoracic region; J98.11 Atelectasis; J98.4 Other disorders of lung; K57.90 Diverticulosis of intestine, part unspecified, without perforation or abscess without bleeding; D17.71 Benign lipomatous neoplasm of kidney; N28.1 Cyst of kidney, acquired; M51.37 Other intervertebral disc degeneration, lumbosacral region
CPT/HCPCS: 71260; 74177; 78306; A9503; Q9967

== ENCOUNTER 2020-07-30 10:11 | Outpatient (CLI) | payer MEDICARE, OTHER ==
[~2020-07-30 10:11] MED LIST changes: +ALPR-585 PO; -ALPR1TAB6 PO; +AMOX1TAB12 PO; +ASPI-963 PO; +GABA600T7 PO; +GUAI200T37 PO; +LACT1TAB13 PO; +MORPHINE PO; -OMNIPAQUE 350 MG/ML, 100ML BOTTLE ONE; +OXYC-296 PO; -OXYC-302 PO; -OXYC-307 PO; +OXYC-380 PO; +OXYC1TAB14 PO; +TIOT18CA INH
[2020-07-30] MEDS ORDERED: OMNIPAQUE 350 MG/ML, 100ML BOTTLE ONE (11:29)
== END 2020-07-30 23:59 | disposition home or self-care (01) ==
LOC: RAD 10:11
PROVIDERS: ATTEND Internal Medicine
DX: C50.511 Malignant neoplasm of lower-outer quadrant of right female breast (principal); K76.0 Fatty (change of) liver, not elsewhere classified; K57.30 Diverticulosis of large intestine without perforation or abscess without bleeding; J90 Pleural effusion, not elsewhere classified; M43.8X4 Other specified deforming dorsopathies, thoracic region; J98.11 Atelectasis; J43.2 Centrilobular emphysema; J98.4 Other disorders of lung; D17.71 Benign lipomatous neoplasm of kidney; N28.1 Cyst of kidney, acquired; I70.0 Atherosclerosis of aorta
CPT/HCPCS: 71260; 74177; 78306; A9503; Q9967

== ENCOUNTER 2020-12-14 11:21 | Outpatient (CLI) | payer MEDICARE, OTHER ==
[~2020-12-14 11:21] MED LIST changes: +OMNIPAQUE 350 MG/ML, 100ML BOTTLE ONE
== END 2020-12-14 23:59 | disposition home or self-care (01) ==
LOC: RAD 11:21
PROVIDERS: ATTEND Internal Medicine
DX: C79.51 Secondary malignant neoplasm of bone (principal); C50.511 Malignant neoplasm of lower-outer quadrant of right female breast; J84.10 Pulmonary fibrosis, unspecified; J92.9 Pleural plaque without asbestos; M43.8X4 Other specified deforming dorsopathies, thoracic region; N28.1 Cyst of kidney, acquired; M51.37 Other intervertebral disc degeneration, lumbosacral region
CPT/HCPCS: 71260; 74177; 78306; A9503; Q9967